=== PATIENT | male | born 1990 | race Two or more races ===

== ENCOUNTER 2017-08-17 21:36 | Emergency (ER) | payer SELFPAY ==
[~2017-08-17] VITALS: Ht 165.1 cm; Wt 87.0 kg
[2017-08-18] MEDS ORDERED: KETOROLAC 60MG/2ML VIAL IM STA (04:57)
[2017-08-18] MEDS ORDERED: LIDOCAINE HCL 1% 20ML VIAL (Pyxis) INJ INFIL ONE (05:00)
[2017-08-18] MEDS ORDERED: CEFTRIAXONE SODIUM 1 G/VIAL IM ONE (05:00)
[2017-08-18 06:25] VITALS: BP 127/62
== END 2017-08-18 07:23 | disposition home or self-care (01) ==
LOC: ER 21:36
DX: J34.0 Abscess, furuncle and carbuncle of nose (principal); L03.211 Cellulitis of face; R19.7 Diarrhea, unspecified; R11.10 Vomiting, unspecified; R22.0 Localized swelling, mass and lump, head
CPT/HCPCS: 96372; 99284; J0696; J1885; J3490; Z7610